=== PATIENT | male | born 1950 | race Caucasian/White ===

== ENCOUNTER 2023-06-27 13:25 | Inpatient (IN) | payer MEDICARE, OTHER ==
--- NOTE | 2023-06-27 13:41 | ED ---
General Adult HPI - General Chief complaint: Shortness of Breath Stated complaint: COPD Time Seen by Provider: 06/27/23 13:31 Source: patient, EMS, RN notes reviewed, old records reviewed (Records reviewed from [facility]) Mode of arrival: EMS Limitations: no limitations - History of Present Illness Initial comments: Patient is a pleasant 73-year-old male presenting to the emergency department with soreness of breath. Onset of symptoms was just a day ago. Patient does have cough. Patient did cough some blood this morning. Patient states dyspnea has improved with treatment from [facility]. Patient was transferred. Patient states he did have some mild leg swelling however that has essentially resolved. No calf pain. No fevers. Patient does have history of COPD with similar dyspnea. - Related Data Allergies Allergy/AdvReac Type Severity Reaction Status Date / Time No Known Allergies Allergy Verified 06/27/23 13:44 Review of Systems ROS Statement: Those systems with pertinent positive or pertinent negative responses have been documented in the HPI. ROS Other: All systems not noted in ROS Statement are negative. Constitutional: Denies: fever Eyes: Denies: eye pain ENT: Denies: ear pain Respiratory: Reports: as per HPI, cough, dyspnea, hemoptysis Cardiovascular: Reports: edema. Denies: chest pain Endocrine: Denies: fatigue Gastrointestinal: Denies: abdominal pain Genitourinary: Denies: dysuria Musculoskeletal: Denies: back pain Skin: Denies: rash Neurological: Denies: weakness General Exam Limitations: no limitations General appearance: alert, in no apparent distress Eye exam: Present: normal appearance Neck exam: Present: normal inspection Respiratory exam: Present: rhonchi Cardiovascular Exam: Present: regular rate, normal rhythm GI/Abdominal exam: Present: soft. Absent: tenderness Extremities exam: Present: normal inspection. Absent: pedal edema, calf tenderness Neurological exam: Present: alert Psychiatric exam: Present: normal affect, normal mood Skin exam: Present: normal color Course Vital Signs 06/27/23 06/27/23 13:27 13:33 Temperature 99.6 F 99.6 F Pulse Rate 91 93 Respiratory 24 24 Rate Blood Pressure 126/64 125/69 O2 Sat by Pulse 95 95 Oximetry - Reevaluation(s) Reevaluation #1: 06/27/23 13:41 There is concern for sepsis and pneumonia diagnosed at 1342. Patient did receive antibiotics at transferring facility prior to arrival. Therefore blood cultures not ordered Medical Decision Making - Medical Decision Making Was pt. sent in by a medical professional or institution (SHAYLA Guidry, PLANT PROPAGATOR, urgent care, hospital, or long term...) When possible be specific @ -Patient was sent from [facility] Did you speak to anyone other than the patient for history (EMS, parent, family, police, friend...)? What history was obtained from this source @ -Did speak with transferring physician Did you review nursing and triage notes (agree or disagree)? Why? @ -[I reviewed and agree with nursing and triage notes] Were old charts reviewed (outside hosp., previous admission, EMS record, old EKG, old radiological studies, urgent care reports/EKG's, long term records)? Report findings @ -I did review chart from [facility] Differential Diagnosis (chest pain, altered mental status, abdominal pain women, abdominal pain men, vaginal bleeding, weakness, fever, dyspnea, syncope, headache, dizziness, GI bleed, back pain, seizure, CVA, palpatations, mental health, musculoskeletal)? @ -Differential Dyspnea: Coronary syndrome, arrhythmia, tamponade, asthma, COPD, pulmonary embolism, pneumonia, pneumothorax, pulmonary effusion, anaphylaxis, diabetic ketoacidosis, flailed chest, pulmonary contusion, diaphragmatic rupture, anemia, neuro muscular, this is not meant to be an all-inclusive list. EKG interpreted by me (3pts min.). @ -[As above] X-rays interpreted by me (1pt min.). @ -Report reviewed CT interpreted by me (1pt min.). @ -Report reviewed U/S interpreted by me (1pt. min.). @ -[None done] What testing was considered but not performed or refused? (CT, X-rays, U/S, labs)? Why? @ -[None] What meds were considered but not given or refused? Why? @ -[None] Did you discuss the management of the patient with other professionals (professionals i.e. SHAYLA Guidry, PLANT PROPAGATOR, lab, RT, psych nurse, social media designer, pharmacy manager, teacher, complaint investigations officer, shoe parts caser)? Give summary @ -Case discussed with sound physician, Dr. stokes, who will admit covering hospital call. Was smoking cessation discussed for >3mins.? @ -[No] Was critical care preformed (if so, how long)? @ -[No] Were there social determinants of health that impacted care today? How? (Homelessness, low income, unemployed, alcoholism, drug addiction, transportation, low edu. Level, literacy, decrease access to med. care, halfway, rehab)? @ -[No] Was there de-escalation of care discussed even if they declined (Discuss DNR or withdrawal of care, Hospice)? DNR status @ -[No] What co-morbidities impacted this encounter? (DM, HTN, Smoking, COPD, CAD, Cancer, CVA, ARF, Chemo, Hep., AIDS, mental health diagnosis, sleep apnea, morbid obesity)? @ -[None] Was patient admitted / discharged? Hospital course, mention meds given and route, prescriptions, significant lab abnormalities, going to OR and other pertinent info. @ -Patient will be admitted for COPD and pneumonia. Patient was arty started on antibiotics. Ulnar will be placed on consult. Admission orders written. Undiagnosed new problem with uncertain prognosis? @ -[No] Drug Therapy requiring intensive monitoring for toxicity (Heparin, Nitro, Insulin, Cardizem)? @ -[No] Were any procedures done? @ -[No] Diagnosis/symptom? @ -Acute COPD, pneumonia Acute, or Chronic, or Acute on Chronic? @ -Acute on chronic, acute Uncomplicated (without systemic symptoms) or Complicated (systemic symptoms)? @ -[default] Side effects of treatment? @ -[No] Exacerbation, Progression, or Severe Exacerbation? @ -Exacerbation of COPD Poses a threat to life or bodily function? How? (Chest pain, USA, ME, pneumonia, PE, COPD, DKA, ARF, appy, cholecystitis, CVA, Diverticulitis, Homicidal, Suicidal, threat to staff... and all critical care pts) @ -Potential threat to life with sepsis and hypoxia Disposition Clinical Impression: Acute exacerbation of chronic obstructive pulmonary disease, Pneumonia, Sepsis Disposition: ADMITTED IP TO THIS [facility] Condition: Serious Is patient prescribed a controlled substance at d/c from ED?: No Referrals: Meek Chase NPC [Primary Care Provider] - 1-2 days Time of Disposition: 13:45
[2023-06-27] MEDS ORDERED: IPRATROPIUM-ALBUTEROL 3 ML NEB INHALATION PRN (13:45)
[2023-06-27] MEDS ORDERED: PNEUMONIA PROTOCOL UTILIZED 1 EACH MISC PO PRN (13:45)
--- NOTE | 2023-06-27 14:47 | XR ---
EXAMINATION TYPE: XR chest 1V portable DATE OF EXAM: 06/27/2023 2:43 PM COMPARISON: CTA chest 06/27/2023 TECHNIQUE: XR chest 1V portable Portable AP radiograph of the chest. CLINICAL INDICATION:Male, 73 years old with history of sob/pneumonia; FINDINGS: Lungs/Pleura: No pleural effusion or pneumothorax. Patchy airspace opacities within the right mid and upper lung. Pulmonary vascularity: Unremarkable. Heart/mediastinum: Cardiomediastinal silhouette is unremarkable. Musculoskeletal: No acute osseous pathology. IMPRESSION: Patchy airspace opacities within the right mid and upper lung consistent with pneumonia.
[2023-06-27] MEDS: IPRATROPIUM-ALBUTEROL 3 ML NEB INHALATION SCH ×2 (14:59→20:14)
--- NOTE | 2023-06-27 15:11 | P.CNPUL ---
History of Present Illness Consult date: 06/27/23 Requesting physician: Jose David Emerson Chief complaint: Hemoptysis and shortness of breath History of present illness: This is a 73-year-old white male, no previous significant medical history, smoker, patient presented to [facility] today with 1 day history of coughing up blood. Patient also complaining of shortness of breath, no chest pain, denies any fever or chills, denies any nausea vomiting abdominal pain angie zbigniew or hematemesis. CT angiogram of the chest showed extensive airspace disease involving the right midlung. Patient was transferred to [facility], and this consult was initiated. Chest x-ray done upon ER evaluation showed significant patchy airspace opacities within the right midlung and right upper lobe consistent with pneumonia. Patient was admitted and this consult was initiated. I saw the patient the ER, he received already vancomycin and Zosyn at [facility], and I will continue with Zosyn for now. Will initiate some diagnostic workup including sputum cultures, blood cultures, urine Legionella antigen, and based on the cultures further recommendations will follow regarding his antibiotics. Patient states that he was a week ago at [facility] with multiple constitutional symptoms and he was diagnosed with B12 deficiency but supposedly he did not have any pulmonary findings or symptoms at the time. Review of Systems Constitutional: Recent episode of generalized weakness and fatigue with aches and pains, resolved. HEENT: Negative no epistaxis. Pulmonary: As noted in HPI mostly cough, hemoptysis, and shortness of breath. Cardiac: Negative GI: Negative Genitourinary: Negative Musculoskeletal recent episode of aches and pains resolved Psychiatric: Negative Hematologic: Hemoptysis Neurologic: Negative Endocrine: Negative Skin: Negative Medications and Allergies Home Medications Medication Instructions Recorded Confirmed Type Atorvastatin [Lipitor] 40 mg PO HS 06/27/23 06/27/23 History Budesonide [Pulmicort] 0.5 mg INHALATION RT-BID 06/27/23 06/27/23 History Cyanocobalamin [Vitamin B-12] 1,000 mcg PO DAILY 06/27/23 06/27/23 History Furosemide [Lasix] 20 mg PO DAILY 06/27/23 06/27/23 History Ipratropium-Albuterol Nebulize 3 ml INHALATION RT-QID PRN 06/27/23 06/27/23 History [Duoneb 0.5 mg-3 mg/3 ml Soln] Levothyroxine Sodium [Synthroid] 112 mcg PO DAILY 06/27/23 06/27/23 History Melatonin 10 mg PO HS 06/27/23 06/27/23 History Metoprolol Tartrate [Lopressor] 25 mg PO DAILY 06/27/23 06/27/23 History Montelukast [Singulair] 10 mg PO HS 06/27/23 06/27/23 History Pantoprazole [Protonix] 40 mg PO BID 06/27/23 06/27/23 History Potassium Chloride ER [K-Dur 20] 20 meq PO DAILY 06/27/23 06/27/23 History Sertraline [Zoloft] 50 mg PO DAILY 06/27/23 06/27/23 History predniSONE [Deltasone] See Taper PO DIRECTED 06/27/23 06/27/23 History traZODone HCL [Desyrel] 50 mg PO HS 06/27/23 06/27/23 History Allergies Allergy/AdvReac Type Severity Reaction Status Date / Time No Known Allergies Allergy Verified 06/27/23 14:09 Physical Exam Vitals: Vital Signs Temp Pulse Resp BP Pulse Ox 06/27/23 13:33 99.6 F 93 24 125/69 95 06/27/23 13:27 99.6 F 91 24 126/64 95 Intake and Output 06/27/23 06/27/23 06/27/23 06:59 14:59 22:59 Other: Weight 113.4 kg Physical Exam: Revealed a 73-year-old white male in no distress on few liters nasal cannula Head: Atraumatic, normocephalic HEENT:[Neck is supple.] [No neck masses.] [No thyromegaly.] [No JVD.] Chest: [Crackles at the right base. And the right midlung area nor rhonchi no wheezes Cardiac Exam: [Normal S1 and S2, no S3 gallop, no murmur.] Abdomen: [Soft, nontender, no megaly, no rebound, no guarding, normal bowel sounds.] Extremities: [No clubbing, no edema, no cyanosis.] Neurological Exam: [No focal neurologic deficit.] Alert oriented 3 Psychiatric: Normal mood affect and normal mental status examination. Skin: No rashes Results - Laboratory Findings Abnormal lab findings: Abnormal Labs 06/27/23 13:45 Plasma Lactic Acid Obdulio 2.6 H* - Diagnostic Findings Chest x-ray: image reviewed (Findings are consistent with extensive pneumonia involving the right midlung area and right upper lobe) Additional studies: Report on his recent CT angiogram of the chest from [facility] showed mostly pneumonia, no evidence of pulmonary embolism. Assessment and Plan Assessment: Impression: Acute hypoxic respiratory failure secondary to extensive pneumonia Acute healthcare acquired pneumonia, patient was recently in [facility]/last week. Hemoptysis secondary to pneumonia however if symptoms persist may consider bronchoscopy in the next 24 hours, we'll recommend keeping the patient nothing by mouth after midnight. History of underlying COPD, presently inactive Dyslipidemia History of B12 deficiency Recommendation: Admit patient to regular medical floor Continue antibiotics, presently on Zithromax and Zosyn Check blood cultures and sputum cultures Continue bronchodilators Continues methylprednisolone Will likely consider bronchoscopy in a.m. We will continue to follow Time with Patient: Greater than 30
[2023-06-27] MEDS: PIPERACILLIN-TAZOBACTAM 3.375 GM in SODIUM CHLORIDE 0.9% 100 ML IVPB SCH (15:54)
--- NOTE | 2023-06-27 16:23 | P.HPIM ---
History of Present Illness H&P Date: 06/27/23 Patient is a 73-year-old male with history of COPD, hypertension, dyslipidemia, presenting from outside hospital with COPD exacerbation, pneumonia and sepsis, and hemoptysis. Patient was recently admitted at outside hospital 3 weeks ago with lower extremity numbness, and anemia. He was found to have severe B12 deficiency. He was in the hospital for 1 week. He has been home for a week and half. Last night he developed severe hemoptysis and cough. Denies any significant fevers or chills. Denies any chest pain, abdominal pain, nausea, vomiting, urinary or bowel complaints. He presented to the outside hospital, he was having urinary retention, Lang was placed. In the ED, temperature was 99.6, blood pressure 126/64, saturating at 95% on 4 L, pulse 91, respiratory rate 20. Labs at Outside facility showed WBC count of 25.93, hemoglobin 12.1, macrocytic, creatinine 1, proBNP 975, pro calcitonin elevated, negative troponin, CTA chest showed no PE, severe LAD calcification, COPD with moderate emphysema, evidence of pneumonia greater on the right compared to left. Patient repeated for sepsis secondary to pneumonia and hemoptysis, and hypoxic respiratory failure, pulmonology consulted. Pertinent positives and negatives as discussed in HPI, a complete review of s ystems was performed and all other systems are negative. Patient seen and examined at bedside. Vital signs reviewed General: nontoxic, no distress, appears at stated age Derm: warm, dry Head: atraumatic, normocephalic, symmetric Eyes: EOMI, no lid lag, anicteric sclera, pupils equal round reactive to light ENT: Nose and ears atraumatic Neck: No thyromegaly, supple Mouth: no lip lesion, mucus membranes moist Cardiovascular: S1S2 reg, no murmur, 2+ pitting edema Lungs: Bilateral rhonchi are, no wheeze, no accessory muscle use Abdominal: soft, nontender to palpation, obese abdomen, no guarding, no appreciable organomegaly Ext: no gross muscle atrophy, muscle strength muscle strength 5 out of 5 in all 4 extremities, no contractures Neuro: CN II-XII grossly intact Psych: Alert, oriented, appropriate affect Assessment/Plan: Active: Acute hypoxic respiratory failure Sepsis secondary to pneumonia possibly healthcare acquired COPD exacerbation Hemoptysis Hypertension Acute urinary retention -Patient started on azithromycin and Zosyn -Also on Solu-Medrol 60 mg IV every 6 hours -Continue bronchodilators -Pulmonology consulted, reviewed, likely bronchoscopy in the morning -Sputum cultures, Legionella urine antigen -Pro calcitonin elevated -Blood cultures ordered -CBC and BMP tomorrow -Continue Lang catheter Chronic: Dyslipidemia Hypothyroidism The patient is admitted with an anticipated greater than 2 midnight stay as inpatient status for evaluation of sepsis secondary to community-acquired pneumonia. Surrogate decision-maker: Daughter CODE STATUS: Full code DVT prophylaxis: SCDs Anticipated discharge date: 2+ days Anticipated discharge place: Pending clinical course A total of 65 minutes was spent on the care of this complex patient more than 50% of the time was spent in counseling and care coordination. Medications and Allergies Home Medications Medication Instructions Recorded Confirmed Type Atorvastatin [Lipitor] 40 mg PO HS 06/27/23 06/27/23 History Budesonide [Pulmicort] 0.5 mg INHALATION RT-BID 06/27/23 06/27/23 History Cyanocobalamin [Vitamin B-12] 1,000 mcg PO DAILY 06/27/23 06/27/23 History Furosemide [Lasix] 20 mg PO DAILY 06/27/23 06/27/23 History Ipratropium-Albuterol Nebulize 3 ml INHALATION RT-QID PRN 06/27/23 06/27/23 History [Duoneb 0.5 mg-3 mg/3 ml Soln] Levothyroxine Sodium [Synthroid] 112 mcg PO DAILY 06/27/23 06/27/23 History Melatonin 10 mg PO HS 06/27/23 06/27/23 History Metoprolol Tartrate [Lopressor] 25 mg PO DAILY 06/27/23 06/27/23 History Montelukast [Singulair] 10 mg PO HS 06/27/23 06/27/23 History Pantoprazole [Protonix] 40 mg PO BID 06/27/23 06/27/23 History Potassium Chloride ER [K-Dur 20] 20 meq PO DAILY 06/27/23 06/27/23 History Sertraline [Zoloft] 50 mg PO DAILY 06/27/23 06/27/23 History predniSONE [Deltasone] See Taper PO DIRECTED 06/27/23 06/27/23 History traZODone HCL [Desyrel] 50 mg PO HS 06/27/23 06/27/23 History Allergies Allergy/AdvReac Type Severity Reaction Status Date / Time No Known Allergies Allergy Verified 06/27/23 14:09 Physical Exam Vitals: Vital Signs Temp Pulse Resp BP Pulse Ox 06/27/23 15:08 84 06/27/23 15:03 94 L 06/27/23 14:59 84 06/27/23 13:33 99.6 F 93 24 125/69 95 06/27/23 13:27 99.6 F 91 24 126/64 95 Intake and Output 06/27/23 06/27/23 06/27/23 06:59 14:59 22:59 Other: Weight 113.4 kg Results Labs: Abnormal Lab Results - Last 24 Hours (Table) 06/27/23 Range/Units 13:45 Plasma Lactic Acid Obdulio 2.6 H* (0.7-2.0) mmol/L
[2023-06-27] MEDS: PANTOPRAZOLE 40 MG TABLET PO SCH (17:11)
[2023-06-27] MEDS: methylPREDNISolone SOD SUCCI 125 MG/2 ML VIAL IV SCH (17:11)
[2023-06-27] MEDS: SODIUM CHLORIDE 0.9% 1,000 ML IV SCH (17:12)
[2023-06-27] MEDS: BUDESONIDE 0.5 MG/2 ML NEBU INHALATION SCH (20:14)
[2023-06-27] MEDS: ATORVASTATIN 40 MG TAB PO SCH (22:16)
[2023-06-27] MEDS: MELATONIN 5 MG TABLET PO SCH (22:16)
[2023-06-27] MEDS: traZODone HCL 50 MG TAB PO SCH (22:17)
[2023-06-27] MEDS: MONTELUKAST 10 MG TAB PO SCH (22:17)
[2023-06-28] MEDS: methylPREDNISolone SOD SUCCI 125 MG/2 ML VIAL IV SCH ×4 (00:32→17:04)
[2023-06-28] MEDS: PIPERACILLIN-TAZOBACTAM 3.375 GM in SODIUM CHLORIDE 0.9% 100 ML IVPB SCH ×3 (00:33→15:52)
[2023-06-28] MEDS: SODIUM CHLORIDE 0.9% 1,000 ML IV SCH ×3 (00:37→17:24)
[2023-06-28] MEDS: PANTOPRAZOLE 40 MG TABLET PO SCH ×2 (05:28→17:04)
[2023-06-28] MEDS: LEVOTHYROXINE 112 MCG TAB PO SCH ×2 (05:28→09:42)
--- NOTE | 2023-06-28 07:38 | XR ---
EXAMINATION TYPE: XR chest 2V DATE OF EXAM: 06/28/2023 COMPARISON: 06/27/2023 HISTORY: Shortness of breath TECHNIQUE: Frontal and lateral views of the chest are obtained. FINDINGS: Scattered senescent parenchymal changes noted. Hyperinflation compatible with COPD. Patchy infiltrate right upper lobe persists and may be slightly improved. The left lung remains clear . Heart size is stable. Mediastinal structures are stable and grossly unremarkable. No evidence for hilar prominence. Degenerative changes dorsal spine. IMPRESSION: 1. Persistent and possibly slightly improved right upper lobe pneumonia.
[2023-06-28] MEDS: BUDESONIDE 0.5 MG/2 ML NEBU INHALATION SCH ×2 (07:49→20:00)
[2023-06-28] MEDS: IPRATROPIUM-ALBUTEROL 3 ML NEB INHALATION SCH ×4 (07:49→20:00)
[2023-06-28] MEDS ORDERED: FUROSEMIDE 20 MG TAB PO SCH (09:00)
[2023-06-28] MEDS ORDERED: METOPROLOL TARTRATE 25 MG TAB PO SCH (09:00)
[2023-06-28] MEDS ORDERED: GLYCOPYRROLATE 0.2 MG/ML 2 ML VIAL ONE (09:04)
[2023-06-28] MEDS ORDERED: KETAMINE 10 MG/ML 20 ML VIAL ONE (09:04)
[2023-06-28] MEDS ORDERED: LIDOCAINE 2% INJ 20 MG/ML (2 ML VIAL) ONE (09:04)
[2023-06-28] MEDS ORDERED: PROPOFOL 10 MG/ML 20 ML VIAL IV ONE (09:04)
[2023-06-28] MEDS ORDERED: MIDAZOLAM 2 MG/2 ML VIAL ONE (09:04)
[2023-06-28] MEDS ORDERED: LIDOCAINE 2% INJ 20 MG/ML INTRATRACH ONE (09:11)
[2023-06-28] MEDS ORDERED: IV FLUID CONTINUATION 1,000 ML IV ONE (09:18)
[2023-06-28] MEDS: CYANOCOBALAMIN 500 MCG TAB PO SCH (09:42)
[2023-06-28] MEDS: SERTRALINE 50 MG TAB PO SCH (09:42)
[2023-06-28] MEDS: POTASSIUM CHLORIDE ER 20 MEQ TAB.ER PO SCH (09:42)
[2023-06-28] MEDS: AZITHROMYCIN 500 MG in SODIUM CHLORIDE 0.9% 250 ML IVPB SCH (09:43)
--- NOTE | 2023-06-28 10:16 | OP ---
OPERATIVE REPORT DATE OF SERVICE : PROCEDURES PERFORMED: Bronchoscopy and bronchoalveolar lavage of the superior segment of the right lower lobe. PREOPERATIVE DIAGNOSES: Hemoptysis and pneumonia. POSTOPERATIVE DIAGNOSES: Hemoptysis and pneumonia. ANESTHESIA USED: IV conscious sedation. DESCRIPTION OF PROCEDURE: The patient was brought into the bronchoscopy suite, placed in a supine position, O2 was applied via Ventimask. The patient had his O2 saturation continuously monitored via pulse oximetry, cardiac rhythm was continuously monitored, blood pressure was intermittently monitored. After adequate IV conscious sedation, the bronchoscope was inserted through a bite block to the area of the upper airways. No evidence of any pathology noted on the vocal cords. Lidocaine was applied over the vocal cords and the bronchoscope was advanced further down. Thorough examination was done of the right upper lobe, right middle lobe, right lower lobe, left lower lobe, lingula, and left upper lobe. There was evidence of purulent secretions mixed with a tiny bit of blood in the superior segment of the right lower lobe. Hence, the superior segment of the right lower lobe was lavaged with saline, fluid was obtained and sent for different diagnostic studies. There was no evidence of any endobronchial tumors. The procedure was well tolerated, no complications. We will continue treatment for presumptive pneumonia/antibiotics. MMODL / IJN: [id number] /
[2023-06-28] MEDS: TAMSULOSIN 0.4 MG CAP.ER.24H PO SCH (10:45)
--- NOTE | 2023-06-28 10:54 | P.PN ---
Subjective Progress Note Date: 06/28/23 This is a 73-year-old white male, no previous significant medical history, smoker, patient presented to [facility] today with 1 day history of coughing up blood. Patient also complaining of shortness of breath, no chest pain, denies any fever or chills, denies any nausea vomiting abdominal pain me dominic or hematemesis. CT angiogram of the chest showed extensive airspace disease involving the right midlung. Patient was transferred to [facility], and this consult was initiated. Chest x-ray done upon ER evaluation showed significant patchy airspace opacities within the right midlung and right upper lobe consistent with pneumonia. Patient was admitted and this consult was initiated. I saw the patient the ER, he received already vancomycin and Zosyn at [facility], and I will continue with Zosyn for now. Will initiate some diagnostic workup including sputum cultures, blood cultures, urine Legionella antigen, and based on the cultures further recommendations will follow regarding his antibiotics. Patient states that he was a week ago at [facility] with multiple constitutional symptoms and he was diagnosed with B12 deficiency but supposedly he did not have any pulmonary findings or symptoms at the time. The patient is seen today 06/28/2023 in follow-up on the regular medical floor. He is currently resting comfortably in bed. Awake and alert in no acute distress. No further hemoptysis this morning. He has a loose nonproductive cough. Chest x-ray showing persistent and slightly improved right upper lobe pneumonia. COVID-19 screen was negative. Plan is for bronchoscopy with BAL today. Currently on oxygen at 4 L/m per nasal cannula. Remains on DuoNeb inhalations, Pulmicort inhalations, Singulair, Solu-Medrol. Antibiotics in the form of Zosyn. Objective - Vital Signs Vital signs: Vital Signs Temp 98.3 F 06/28/23 07:50 Pulse 99 06/28/23 10:31 Resp 18 06/28/23 10:31 BP 124/74 06/28/23 10:31 Pulse Ox 93 L 06/28/23 10:31 FiO2 Intake & Output 06/27/23 06/28/23 06/28/23 18:59 06:59 18:59 Intake Total 100 Output Total 1400 430 Balance -1400 -430 100 Weight 113.4 kg Intake: IV 100 Output: Urine 1400 430 Other: Voiding Method Indwelling Catheter Indwelling Catheter Indwelling Catheter # Voids 0 - Exam GENERAL EXAM: Alert, pleasant 73-year-old male, on 4 L nasal cannula, comfortable in no apparent distress. HEAD: Normocephalic. EYES: Normal reaction of pupils, equal size. NOSE: Clear with pink turbinates. THROAT: No erythema or exudates. NECK: No masses, no JVD. CHEST: No chest wall deformity. LUNGS: Equal air entry with few scattered rhonchi of the right lung. CVS: S1 and S2 normal with no audible murmur, regular rhythm. ABDOMEN: No hepatosplenomegaly, normal bowel sounds, no guarding or rigidity. SPINE: No scoliosis or deformity SKIN: No rashes CENTRAL NERVOUS SYSTEM: No focal deficits, tone is normal in all 4 extremities. EXTREMITIES: There is no peripheral edema. No clubbing, no cyanosis. Peripheral pulses are intact. - Labs Labs: Abnormal Lab Results - Last 24 Hours (Table) 06/27/23 06/27/23 Range/Units 13:45 18:12 Plasma Lactic Acid Obdulio 2.6 H* 4.2 H* (0.7-2.0) mmol/L Assessment and Plan Assessment: Acute hypoxic respiratory failure secondary to extensive pneumonia Acute healthcare acquired pneumonia, patient was recently in [facility]/last week. Hemoptysis secondary to pneumonia, bronchoscopy today ruled out endobronchial tumor. History of underlying COPD, presently inactive Dyslipidemia History of B12 deficiency Plan: The patient was seen and evaluated Chest x-ray, labs and medications reviewed Bronchoscopy with BAL performed today No endobronchial lesions noted Remains on antibiotics, bronchodilators, steroids Check a procalcitonin Titrate the FiO2 as tolerated We will continue to follow I have personally seen and examined the patient, performed the documentation and the assessment and plan as written. Number of minutes spent on the visit: 10.
[2023-06-28 13:24] LABS: ALT 23 U/L (10-49); AST 11 U/L (14-35); Albumin 3.8 d/dL (3.8-4.9); Albumin/Globulin Ratio 2.53 Ratio (1.60-3.17); Alkaline Phosphatase 54 U/L (41-126); BUN/Creat Ratio 17.85 Ratio (12.00-20.00); Blood Urea Nitrogen 23.2 mg/dL (9.0-27.0); Calcium 8.8 mg/dL (8.7-10.3); Carbon Dioxide 24.3 mmol/L (21.6-31.8); Chloride 107 mmol/L (96-109); Globulin 1.5 d/dL (1.6-3.3); Glucose 151 mg/dL (70-110); Potassium 4.3 mmol/L (3.5-5.5); Sodium 144 mmol/L (135-145); Total Bilirubin 1.3 mg/dL (0.3-1.2); Total Protein 5.3 d/dL (6.2-8.2)
[2023-06-28 13:35] LABS: Basophils # (A) 0.01 X 10*3/uL (0.00-0.10); Basophils % (A) 0.1 %; Eosinophils # (A) 0 X 10*3/uL (0.04-0.35); Eosinophils % (A) 0 %; HCT 34.3 % (39.6-50.0); HGB 10.9 d/dL (13.0-17.0); Lymphocytes # (A) 0.33 X 10*3/uL (0.90-5.00); Lymphocytes % (A) 1.9 %; MCH 35.9 pg (27.0-32.0); MCHC 31.8 d/dL (32.0-37.0); MCV 112.8 FL (80.0-97.0); Mean Platelet Volume 10.4 FL (9.5-12.2); Monocytes # (A) 0.25 X 10*3/uL (0.20-1.00); Monocytes % (A) 1.5 %; NRBC Per 100 WBC 0 X 10*3/uL (0.00-0.01); Neutrophils # (A) 16.36 X 10*3/uL (1.80-7.70); Neutrophils % (A) 95.8 %; Platelet Count 394 X 10*3/uL (140-440); RBC 3.04 X 10*6/uL (4.40-5.60); RDW 17.6 % (11.5-14.5); WBC 17.07 X 10*3/uL (4.50-10.00)
[2023-06-28] MEDS: traZODone HCL 50 MG TAB PO SCH (20:41)
[2023-06-28] MEDS: MELATONIN 5 MG TABLET PO SCH (20:41)
[2023-06-28] MEDS: MONTELUKAST 10 MG TAB PO SCH (20:41)
[2023-06-28] MEDS: ATORVASTATIN 40 MG TAB PO SCH (20:41)
--- NOTE | 2023-06-28 22:26 | P.PN ---
Progress Note - Text Progress Note Date: 06/28/23 Patient is a 73-year-old male with history of COPD, hypertension, dyslipidemia, presenting from outside hospital with COPD exacerbation, pneumonia and sepsis, and hemoptysis. Patient was recently admitted at outside hospital 3 weeks ago with lower extremity numbness, and anemia. He was found to have severe B12 deficiency. He was in the hospital for 1 week. He has been home for a week and half. Last night he developed severe hemoptysis and cough. Denies any significant fevers or chills. Denies any chest pain, abdominal pain, nausea, vomiting, urinary or bowel complaints. He presented to the outside hospital, he was having urinary retention, Lang was placed. In the ED, temperature was 99.6, blood pressure 126/64, saturating at 95% on 4 L, pulse 91, respiratory rate 20. Labs at Outside facility showed WBC count of 25.93, hemoglobin 12.1, macrocytic, creatinine 1, proBNP 975, pro calcitonin elevated, negative troponin, CTA chest showed no PE, severe LAD calcification, COPD with moderate emphysema, evidence of pneumonia greater on the right compared to left. Patient repeated for sepsis secondary to pneumonia and hemoptysis, and hypoxic respiratory failure, pulmonology consulted. 06/28/2023: Patient follows with Dr. Ambrosio. I took over the care today. Declining a bit. Some shortness of breath. Slight cough. Some shortness of breath. No sputum. Appetite fair. We'll try to DC the Lang catheter. On IV Zosyn for pneumonia. Underwent bronchoscopy by Dr. Ramos earlier today. Found to have purulent material. Active Medications Albuterol/Ipratropium (Ipratropium-Albuterol 3 Ml Neb) 3 ml INHALATION RT-QID ON LICENSE OF [facility] Last Admin: 06/28/23 20:00 Dose: 3 ml Albuterol/Ipratropium (Ipratropium-Albuterol 3 Ml Neb) 3 ml INHALATION RT-Q4H PRN PRN Reason: shortness of breath Atorvastatin Calcium (Atorvastatin 40 Mg Tab) 40 mg PO HS ON LICENSE OF [facility] Last Admin: 06/28/23 20:41 Dose: 40 mg Budesonide (Budesonide 0.5 Mg/2 Ml Nebu) 0.5 mg INHALATION RT-BID ON LICENSE OF [facility] Last Admin: 06/28/23 20:00 Dose: 0.5 mg Cyanocobalamin (Cyanocobalamin 500 Mcg Tab) 1,000 mcg PO DAILY ON LICENSE OF [facility] Last Admin: 06/28/23 09:42 Dose: 1,000 mcg Azithromycin 500 mg/ Sodium (Chloride) 250 mls @ 250 mls/hr IVPB DAILY ON LICENSE OF [facility]; Protocol Stop: 06/29/23 09:59 Last Admin: 06/28/23 09:43 Dose: 250 mls/hr Piperacillin Sod/Tazobactam (Sod 3.375 gm/ Sodium Chloride) 100 mls @ 25 mls/hr IVPB Q8HR ON LICENSE OF [facility]; Protocol Stop: 07/02/23 16:01 Last Admin: 06/28/23 15:52 Dose: 25 mls/hr Sodium Chloride (Saline 0.9%) 1,000 mls @ 130 mls/hr IV .Q7H42M ON LICENSE OF [facility] Last Admin: 06/28/23 17:24 Dose: Not Given Levothyroxine Sodium (Levothyroxine 112 Mcg Tab) 112 mcg PO DAILY@0630 ON LICENSE OF [facility] Last Admin: 06/28/23 09:42 Dose: 112 mcg Melatonin (Melatonin 5 Mg Tablet) 10 mg PO [facility] Last Admin: 06/28/23 20:41 Dose: 10 mg Methylprednisolone Sodium Succinate (Methylprednisolone Sod Succi 125 Mg/2 Ml Vial) 60 mg IV Q6HR ON LICENSE OF [facility] Last Admin: 06/28/23 17:04 Dose: 60 mg Metoprolol Tartrate (Metoprolol Tartrate 25 Mg Tab) 25 mg PO DAILY ON LICENSE OF [facility] Last Admin: 06/28/23 09:42 Dose: 25 mg Miscellaneous Information (Pneumonia Protocol Utilized 1 Each Misc) 1 each PO ONCE PRN PRN Reason: Per Protocol Montelukast Sodium (Montelukast 10 Mg Tab) 10 mg PO [facility] Last Admin: 06/28/23 20:41 Dose: 10 mg Pantoprazole Sodium (Pantoprazole 40 Mg Tablet) 40 mg PO AC-BID ON LICENSE OF [facility] Last Admin: 06/28/23 17:04 Dose: 40 mg Potassium Chloride (Potassium Chloride Er 20 Meq Tab.Er) 20 meq PO DAILY ON LICENSE OF [facility] Last Admin: 06/28/23 09:42 Dose: 20 meq Sertraline HCl (Sertraline 50 Mg Tab) 50 mg PO DAILY ON LICENSE OF [facility] Last Admin: 06/28/23 09:42 Dose: 50 mg Tamsulosin HCl (Tamsulosin 0.4 Mg Cap.Er.24h) 0.4 mg PO PC-BRKFST ON LICENSE OF [facility] Last Admin: 06/28/23 10:45 Dose: 0.4 mg Trazodone HCl (Trazodone Hcl 50 Mg Tab) 50 mg PO HS ON LICENSE OF [facility] Last Admin: 06/28/23 20:41 Dose: 50 mg On examination: VITAL SIGNS: [88.7, 72, 20, 11 8 x 68, 95% on 4 L] GENERAL APPEARANCE: Reclining in bed awake slightly tired HEENT: Normal external appearance of nose and ear. Oral cavity normal EYES: Pupils equal. Conjunctiva normal. NECK: JVD not raised. Mass not palpable. RESPIRATORY: Respiratory effort increased. Right lung post recent coarse crackles CARDIOVASCULAR: First and second sounds normal. No edema. ABDOMEN: Soft. Liver and spleen not palpable. No tenderness. No mass palpable. PSYCHIATRY: Alert and oriented x3. Mood and affect normal. INVESTIGATIONS, reviewed in the clinical context: June 28: White count 17 hemoglobin 10.9 platelets 394 sodium 144 potassium 4.3 BUN 23.2 creatinine 1.3 procalcitonin 0.84 COVID 19 P/Cr: Not detected Chest x-ray film personally reviewed by me-right upper lobe infiltrate. Assessment and plan: -Right upper lobe pneumonia. Suspect gram-negative organism. slow to respond IV Zosyn. Unit pending cultures from bronchoscopy lavage -Acute hypoxic respiratory failure secondary to pneumonia: Slow to respond Current in 4 L of oxygen -Sepsis secondary to pneumonia -Acute COPD exacerbation DuoNeb. IV Solu-Medrol. -Hemoptysis likely secondary to pneumonia. -Essential hypertension -Hypothyroid Synthroid 112 g -Vitamin B-12 deficiency Vitamin B12 supplement -Bilateral hearing loss -Chronic insomnia Trazodone -Hyperlipidemia Lipitor -Depression Zoloft -GERD Protonix -Full code
[2023-06-29] MEDS: PIPERACILLIN-TAZOBACTAM 3.375 GM in SODIUM CHLORIDE 0.9% 100 ML IVPB SCH ×2 (00:13→07:47)
[2023-06-29] MEDS: methylPREDNISolone SOD SUCCI 125 MG/2 ML VIAL IV SCH ×2 (00:14→05:37)
[2023-06-29] MEDS: LEVOTHYROXINE 112 MCG TAB PO SCH (05:37)
[2023-06-29] MEDS: PANTOPRAZOLE 40 MG TABLET PO SCH ×2 (05:37→17:05)
[2023-06-29] MEDS: SODIUM CHLORIDE 0.9% 1,000 ML IV SCH ×2 (05:38→07:47)
[2023-06-29] MEDS: TAMSULOSIN 0.4 MG CAP.ER.24H PO SCH (07:47)
--- NOTE | 2023-06-29 08:24 | XR ---
EXAMINATION TYPE: XR chest 1V portable DATE OF EXAM: 06/29/2023 HISTORY: Shortness of breath. COMPARISON: 06/28/2023 TECHNIQUE: Single view of the chest is submitted. FINDINGS: Demonstrated are scattered senescent parenchymal change. Right perihilar infiltrate persists although appears to be slightly improved. Correlate clinically an d progress studies are recommended. The heart is stable. Hilar and mediastinal structures are within normal limits. Degenerative changes are seen of the dorsal spine. IMPRESSION: 1. Right perihilar infiltrate persists although appears to be slightly improved. Correlate clinicall y and progress studies are recommended.
[2023-06-29] MEDS: IPRATROPIUM-ALBUTEROL 3 ML NEB INHALATION SCH ×4 (08:45→20:41)
[2023-06-29] MEDS: BUDESONIDE 0.5 MG/2 ML NEBU INHALATION SCH ×2 (08:46→20:41)
[2023-06-29] MEDS: POTASSIUM CHLORIDE ER 20 MEQ TAB.ER PO SCH (08:52)
[2023-06-29] MEDS: METOPROLOL TARTRATE 12.5 MG TAB PO SCH ×2 (08:52→20:30)
[2023-06-29] MEDS: AZITHROMYCIN 500 MG in SODIUM CHLORIDE 0.9% 250 ML IVPB SCH (08:53)
[2023-06-29] MEDS: SERTRALINE 50 MG TAB PO SCH (08:53)
[2023-06-29] MEDS: CYANOCOBALAMIN 500 MCG TAB PO SCH (08:53)
--- NOTE | 2023-06-29 09:54 | P.PN ---
Subjective Progress Note Date: 06/29/23 This is a 73-year-old white male, no previous significant medical history, smoker, patient presented to [facility] today with 1 day history of coughing up blood. Patient also complaining of shortness of breath, no chest pain, denies any fever or chills, denies any nausea vomiting abdominal pain me dominic or hematemesis. CT angiogram of the chest showed extensive airspace disease involving the right midlung. Patient was transferred to [facility], and this consult was initiated. Chest x-ray done upon ER evaluation showed significant patchy airspace opacities within the right midlung and right upper lobe consistent with pneumonia. Patient was admitted and this consult was initiated. I saw the patient the ER, he received already vancomycin and Zosyn at [facility], and I will continue with Zosyn for now. Will initiate some diagnostic workup including sputum cultures, blood cultures, urine Legionella antigen, and based on the cultures further recommendations will follow regarding his antibiotics. Patient states that he was a week ago at [facility] with multiple constitutional symptoms and he was diagnosed with B12 deficiency but supposedly he did not have any pulmonary findings or symptoms at the time. The patient is seen today 06/28/2023 in follow-up on the regular medical floor. He is currently resting comfortably in bed. Awake and alert in no acute distress. No further hemoptysis this morning. He has a loose nonproductive cough. Chest x-ray showing persistent and slightly improved right upper lobe pneumonia. COVID-19 screen was negative. Plan is for bronchoscopy with BAL today. Currently on oxygen at 4 L/m per nasal cannula. Remains on DuoNeb inhalations, Pulmicort inhalations, Singulair, Solu-Medrol. Antibiotics in the form of Zosyn. The patient is seen today 06/29/2023 in follow-up on the regular medical floor. He is currently sitting up in bed. Awake and alert in no acute distress. No further hemoptysis. No worsening shortness of breath, cough or congestion. Chest x-ray showing improvement in the right hilar infiltrate. Blood culture revealed no growth. He is continued on DuoNeb inhalations, Pulmicort inhalat ions, IV Solu-Medrol. Antibiotics in the form of Zosyn and azithromycin. Objective - Vital Signs Vital signs: Vital Signs Temp 97.8 F 06/29/23 07:31 Pulse 84 06/29/23 09:02 Resp 17 06/29/23 07:31 BP 156/64 06/29/23 07:31 Pulse Ox 94 L 06/29/23 08:46 FiO2 Intake & Output 06/28/23 06/29/23 06/29/23 18:59 06:59 18:59 Intake Total 340 Output Total 1100 1535 Balance -760 -1535 Intake: IV 100 Oral 240 Output: Urine 1100 1535 Uretheral (Lang) 1100 Other: Voiding Method Indwelling Catheter Toilet Urinal - Exam GENERAL EXAM: Alert, pleasant 73-year-old male, sitting up in bed, on 3 L nasal cannula, comfortable in no apparent distress. HEAD: Normocephalic. EYES: Normal reaction of pupils, equal size. NOSE: Clear with pink turbinates. THROAT: No erythema or exudates. NECK: No masses, no JVD. CHEST: No chest wall deformity. LUNGS: Equal air entry with few scattered rhonchi of the right lung. CVS: S1 and S2 normal with no audible murmur, regular rhythm. ABDOMEN: No hepatosplenomegaly, normal bowel sounds, no guarding or rigidity. SPINE: No scoliosis or deformity SKIN: No rashes CENTRAL NERVOUS SYSTEM: No focal deficits, tone is normal in all 4 extremities. EXTREMITIES: There is no peripheral edema. No clubbing, no cyanosis. Peripheral pulses are intact. - Labs CBC & Chem 7: 06/28/23 06:53 06/28/23 06:53 Labs: Abnormal Lab Results - Last 24 Hours (Table) 06/28/23 06/28/23 06/28/23 Range/Units 06:53 06:53 06:53 WBC 17.07 H (4.50-10.00) X 10*3/uL RBC 3.04 L (4.40-5.60) X 10*6/uL Hgb 10.9 L (13.0-17.0) d/dL Hct 34.3 L (39.6-50.0) % MCV 112.8 H (80.0-97.0) FL MCH 35.9 H (27.0-32.0) pg MCHC 31.8 L (32.0-37.0) d/dL RDW 17.6 H (11.5-14.5) % Neutrophils # 16.36 H (1.80-7.70) X 10*3/uL Lymphocytes # 0.33 L (0.90-5.00) X 10*3/uL Eosinophils # 0 L (0.04-0.35) X 10*3/uL Anion Gap 12.70 H (4.00-12.00) mmol/L Est GFR (CKD-EPI) 58 L (>=60) Glucose 151 H (70-110) mg/dL Total Bilirubin 1.3 H (0.3-1.2) mg/dL AST 11 L (14-35) U/L Total Protein 5.3 L (6.2-8.2) d/dL Globulin 1.5 L (1.6-3.3) d/dL Procalcitonin 0.84 H (0.02-0.09) ng/mL Microbiology - Last 24 Hours (Table) 06/27/23 18:12 Blood Culture - Preliminary Blood Assessment and Plan Assessment: Acute hypoxic respiratory failure secondary to extensive pneumonia, follow-up chest x-ray showing improvement. Pro-calcitonin 0.84 Acute healthcare acquired pneumonia, patient was in [facility] last week Hemoptysis secondary to pneumonia, bronchoscopy today ruled out endobronchial tumor History of underlying COPD, presently inactive Dyslipidemia History of B12 deficiency Plan: The patient was seen and evaluated Chest x-ray, labs and medications reviewed Cleared for discharge from the pulmonary standpoint Complete 7 days of Levaquin Continue his home pulmonary medications and oxygen Follow-up in our office in 1 week I have personally seen and examined the patient, performed the documentation and the assessment and plan as written. Number of minutes spent on the visit: 10.
[2023-06-29] MEDS: methylPREDNISolone SOD SUCCI 40 MG/ML 1 ML VIAL IV SCH ×2 (14:07→21:25)
--- NOTE | 2023-06-29 16:54 | P.PN ---
Progress Note - Text Progress Note Date: 06/29/23 Patient is a 73-year-old male with history of COPD, hypertension, dyslipidemia, presenting from outside hospital with COPD exacerbation, pneumonia and sepsis, and hemoptysis. Patient was recently admitted at outside hospital 3 weeks ago with lower extremity numbness, and anemia. He was found to have severe B12 deficiency. He was in the hospital for 1 week. He has been home for a week and half. Last night he developed severe hemoptysis and cough. Denies any significant fevers or chills. Denies any chest pain, abdominal pain, nausea, vomiting, urinary or bowel complaints. He presented to the outside hospital, he was having urinary retention, Lang was placed. In the ED, temperature was 99.6, blood pressure 126/64, saturating at 95% on 4 L, pulse 91, respiratory rate 20. Labs at Outside facility showed WBC count of 25.93, hemoglobin 12.1, macrocytic, creatinine 1, proBNP 975, pro calcitonin elevated, negative troponin, CTA chest showed no PE, severe LAD calcification, COPD with moderate emphysema, evidence of pneumonia greater on the right compared to left. Patient repeated for sepsis secondary to pneumonia and hemoptysis, and hypoxic respiratory failure, pulmonology consulted. 06/28/2023: Patient follows with Dr. Ambrosio. I took over the care today. Declining a bit. Some shortness of breath. Slight cough. Some shortness of breath. No sputum. Appetite fair. We'll try to DC the Lang catheter. On IV Zosyn for pneumonia. Underwent bronchoscopy by Dr. Ramos earlier today. Found to have purulent material. 06/29/2023: Sitting up in a recliner. Breathing improving. Minimal cough. Eating well. Being changed over to oral antibiotic. Active Medications Albuterol/Ipratropium (Ipratropium-Albuterol 3 Ml Neb) 3 ml INHALATION RT-QID [place] Last Admin: 06/29/23 15:24 Dose: 3 ml Albuterol/Ipratropium (Ipratropium-Albuterol 3 Ml Neb) 3 ml INHALATION RT-Q4H PRN PRN Reason: shortness of breath Atorvastatin Calcium (Atorvastatin 40 Mg Tab) 40 mg PO HS [place] Last Admin: 06/28/23 20:41 Dose: 40 mg Budesonide (Budesonide 0.5 Mg/2 Ml Nebu) 0.5 mg INHALATION RT-BID [facility] Last Admin: 06/29/23 08:46 Dose: 0.5 mg Cyanocobalamin (Cyanocobalamin 500 Mcg Tab) 1,000 mcg PO DAILY [facility] Last Admin: 06/29/23 08:53 Dose: 1,000 mcg Sodium Chloride (Saline 0.9%) 1,000 mls @ 10 mls/hr IV .Q24H [facility] Last Admin: 06/29/23 07:47 Dose: Not Given Levofloxacin (Levofloxacin 500 Mg Tab) 500 mg PO Q24H [facility]; Protocol Stop: 07/06/23 11:01 Levothyroxine Sodium (Levothyroxine 112 Mcg Tab) 112 mcg PO DAILY@0630 [facility] Last Admin: 06/29/23 05:37 Dose: 112 mcg Melatonin (Melatonin 5 Mg Tablet) 10 mg PO [facility] Last Admin: 06/28/23 20:41 Dose: 10 mg Methylprednisolone Sodium Succinate (Methylprednisolone Sod Succi 40 Mg/Ml 1 Ml Vial) 40 mg IV Q8H [facility] Last Admin: 06/29/23 14:07 Dose: 40 mg Metoprolol Tartrate (Metoprolol Tartrate 12.5 Mg Tab) 12.5 mg PO BID [facility] Last Admin: 06/29/23 08:52 Dose: 12.5 mg Miscellaneous Information (Pneumonia Protocol Utilized 1 Each Misc) 1 each PO ONCE PRN PRN Reason: Per Protocol Montelukast Sodium (Montelukast 10 Mg Tab) 10 mg PO [facility] Last Admin: 06/28/23 20:41 Dose: 10 mg Pantoprazole Sodium (Pantoprazole 40 Mg Tablet) 40 mg PO AC-BID [facility] Last Admin: 06/29/23 05:37 Dose: 40 mg Potassium Chloride (Potassium Chloride Er 20 Meq Tab.Er) 20 meq PO DAILY [facility] Last Admin: 06/29/23 08:52 Dose: 20 meq Sertraline HCl (Sertraline 50 Mg Tab) 50 mg PO DAILY [facility] Last Admin: 06/29/23 08:53 Dose: 50 mg Tamsulosin HCl (Tamsulosin 0.4 Mg Cap.Er.24h) 0.4 mg PO PC-BRKFST [facility] Last Admin: 06/29/23 07:47 Dose: 0.4 mg Trazodone HCl (Trazodone Hcl 50 Mg Tab) 50 mg PO [facility] Last Admin: 06/28/23 20:41 Dose: 50 mg On examination: VITAL SIGNS: 98, 66, 16, 1 23 x 68, 97% room air GENERAL APPEARANCE: Reclining in bed awake slightly tired HEENT: Normal external appearance of nose and ear. Oral cavity normal EYES: Pupils equal. Conjunctiva normal. NECK: JVD not raised. Mass not palpable. RESPIRATORY: Respiratory effort increased. Right lung post recent coarse crackles CARDIOVASCULAR: First and second sounds normal. No edema. ABDOMEN: Soft. Liver and spleen not palpable. No tenderness. No mass palpable. PSYCHIATRY: Alert and oriented x3. Mood and affect normal. INVESTIGATIONS, reviewed in the clinical context: June 28: White count 17 hemoglobin 10.9 platelets 394 sodium 144 potassium 4.3 BUN 23.2 creatinine 1.3 procalcitonin 0.84 COVID 19 P/Cr: Not detected Chest x-ray film personally reviewed by me-right upper lobe infiltrate. Assessment and plan: -Right upper lobe pneumonia. Suspect gram-negative organism. Improving IV Zosyn. pending cultures from bronchoscopy lavage -Acute hypoxic respiratory failure secondary to pneumonia: Improving Now decreased to room air -Sepsis secondary to pneumonia -Acute COPD exacerbation DuoNeb. IV [id number] over to prednisone tomorrow. -Hemoptysis likely secondary to pneumonia. -Essential hypertension -Hypothyroid Synthroid 112 g -Vitamin B-12 deficiency Vitamin B12 supplement -Bilateral hearing loss -Chronic insomnia Trazodone -Hyperlipidemia Lipitor -Depression Zoloft -GERD Protonix -Full code Changed to oral Levaquin. By pulmonary. developer prover upholstering to oral prednisone in the morning. Increase activity. Plan for discharge tomorrow.
[2023-06-29] MEDS: traZODone HCL 50 MG TAB PO SCH (20:30)
[2023-06-29] MEDS: MONTELUKAST 10 MG TAB PO SCH (20:30)
[2023-06-29] MEDS: ATORVASTATIN 40 MG TAB PO SCH (20:30)
[2023-06-29] MEDS: MELATONIN 5 MG TABLET PO SCH (20:30)
[2023-06-30] MEDS: LEVOTHYROXINE 112 MCG TAB PO SCH (06:26)
[2023-06-30] MEDS: PANTOPRAZOLE 40 MG TABLET PO SCH (06:26)
[2023-06-30 07:28] VITALS: RESP 16
[2023-06-30] MEDS: SODIUM CHLORIDE 0.9% 1,000 ML IV SCH (07:57)
[2023-06-30] MEDS: TAMSULOSIN 0.4 MG CAP.ER.24H PO SCH (07:57)
[2023-06-30] MEDS: SERTRALINE 50 MG TAB PO SCH (08:00)
[2023-06-30] MEDS: POTASSIUM CHLORIDE ER 20 MEQ TAB.ER PO SCH (08:00)
[2023-06-30] MEDS: CYANOCOBALAMIN 500 MCG TAB PO SCH (08:00)
[2023-06-30] MEDS: METOPROLOL TARTRATE 12.5 MG TAB PO SCH (08:00)
[2023-06-30] MEDS: BUDESONIDE 0.5 MG/2 ML NEBU INHALATION SCH (08:27)
[2023-06-30] MEDS: IPRATROPIUM-ALBUTEROL 3 ML NEB INHALATION SCH ×2 (08:27→12:09)
[2023-06-30] MEDS ORDERED: predniSONE 20 MG TAB PO SCH (09:00)
[2023-06-30] MEDS ORDERED: LEVOFLOXACIN 500 MG TAB PO SCH (11:00)
--- NOTE | 2023-06-30 12:09 | P.PN ---
Subjective Progress Note Date: 06/30/23 This is a 73-year-old white male, no previous significant medical history, smoker, patient presented to [facility] today with 1 day history of coughing up blood. Patient also complaining of shortness of breath, no chest pain, denies any fever or chills, denies any nausea vomiting abdominal pain me dominic or hematemesis. CT angiogram of the chest showed extensive airspace disease involving the right midlung. Patient was transferred to [facility], and this consult was initiated. Chest x-ray done upon ER evaluation showed significant patchy airspace opacities within the right midlung and right upper lobe consistent with pneumonia. Patient was admitted and this consult was initiated. I saw the patient the ER, he received already vancomycin and Zosyn at [facility], and I will continue with Zosyn for now. Will initiate some diagnostic workup including sputum cultures, blood cultures, urine Legionella antigen, and based on the cultures further recommendations will follow regarding his antibiotics. Patient states that he was a week ago at [facility] with multiple constitutional symptoms and he was diagnosed with B12 deficiency but supposedly he did not have any pulmonary findings or symptoms at the time. The patient is seen today 06/28/2023 in follow-up on the regular medical floor. He is currently resting comfortably in bed. Awake and alert in no acute distress. No further hemoptysis this morning. He has a loose nonproductive cough. Chest x-ray showing persistent and slightly improved right upper lobe pneumonia. COVID-19 screen was negative. Plan is for bronchoscopy with BAL today. Currently on oxygen at 4 L/m per nasal cannula. Remains on DuoNeb inhalations, Pulmicort inhalations, Singulair, Solu-Medrol. Antibiotics in the form of Zosyn. The patient is seen today 06/29/2023 in follow-up on the regular medical floor. He is currently sitting up in bed. Awake and alert in no acute distress. No further hemoptysis. No worsening shortness of breath, cough or congestion. Chest x-ray showing improvement in the right hilar infiltrate. Blood culture revealed no growth. He is continued on DuoNeb inhalations, Pulmicort inhalat ions, IV Solu-Medrol. Antibiotics in the form of Zosyn and azithromycin. The patient is seen today 06/30/2023 and follow-up on the regular medical floor. He is sitting up at the bedside. Awake and alert in no acute distress. HEENT in good O2 saturations in the mid 90s on 1 L/m per nasal cannula. He is afebrile. Hemodynamically stable. Blood and urine cultures reveal no growth. He remains on DuoNeb inhalations, Pulmicort inhalations, Singulair. Antibiotics in the form of Levaquin. Objective - Vital Signs Vital signs: Vital Signs Temp 98.0 F 06/30/23 07:27 Pulse 80 06/30/23 08:41 Resp 16 06/30/23 07:27 BP 136/89 06/30/23 07:27 Pulse Ox 95 06/30/23 09:00 FiO2 Intake & Output 06/29/23 06/30/23 06/30/23 18:59 06:59 18:59 Other: # Voids 4 2 # Bowel Movements 1 - Exam GENERAL EXAM: Alert, 73-year-old male, on 1 L nasal cannula, comfortable in no apparent distress. HEAD: Normocephalic. EYES: Normal reaction of pupils, equal size. NOSE: Clear with pink turbinates. THROAT: No erythema or exudates. NECK: No masses, no JVD. CHEST: No chest wall deformity. LUNGS: Equal air entry with few scattered rhonchi of the right lung. CVS: S1 and S2 normal with no audible murmur, regular rhythm. ABDOMEN: No hepatosplenomegaly, normal bowel sounds, no guarding or rigidity. SPINE: No scoliosis or deformity SKIN: No rashes CENTRAL NERVOUS SYSTEM: No focal deficits, tone is normal in all 4 extremities. EXTREMITIES: There is no peripheral edema. No clubbing, no cyanosis. Peripheral pulses are intact. - Labs CBC & Chem 7: 06/28/23 06:53 06/28/23 06:53 Labs: Microbiology - Last 24 Hours (Table) 06/27/23 18:12 Blood Culture - Preliminary Blood 06/27/23 13:51 Gram Stain - Preliminary Sputum Assessment and Plan Assessment: Acute hypoxic respiratory failure secondary to extensive pneumonia, follow-up chest x-ray showing improvement. Pro-calcitonin 0.84 Acute healthcare acquired pneumonia, patient was in [facility] last week Hemoptysis secondary to pneumonia, bronchoscopy today ruled out endobronchial tumor History of underlying COPD, presently inactive Dyslipidemia History of B12 deficiency Plan: The patient was seen and evaluated Medications reviewed Cleared for discharge from the pulmonary standpoint Complete 7 days of Levaquin Continue his home pulmonary medications and oxygen Follow-up in our office in 1 week I have personally seen and examined the patient, performed the documentation and the assessment and plan as written. Number of minutes spent on the visit: 10.
[2023-06-30 13:55] VITALS: BP 116/66; PULSE 110; TEMP 97.5
--- NOTE | 2023-06-30 15:08 | P.DS ---
Providers Date of admission: 06/27/23 13:45 Expected date of discharge: 06/30/23 Attending physician: Michele Montesinos Consults: 06/27/23 13:55 Consult Physician Urgent Consulting Provider: Rogerio Ramos Consult Reason/Comments: dyspnea Do you want consulting provider notified?: Yes Primary care physician: [facility] Course: Patient is a 73-year-old male with history of COPD, hypertension, dyslipidemia, presenting from outside hospital with COPD exacerbation, pneumonia and sepsis, and hemoptysis. Patient was recently admitted at outside hospital 3 weeks ago with lower extremity numbness, and anemia. He was found to have severe B12 deficiency. He was in the hospital for 1 week. He has been home for a week and half. Last night he developed severe hemoptysis and cough. Denies any significant fevers or chills. Denies any chest pain, abdominal pain, nausea, vomiting, urinary or bowel complaints. He presented to the outside hospital, he was having urinary retention, Lang was placed. In the ED, temperature was 99.6, blood pressure 126/64, saturating at 95% on 4 L, pulse 91, respiratory rate 20. Labs at Outside facility showed WBC count of 25.93, hemoglobin 12.1, macrocytic, creatinine 1, proBNP 975, pro calcitonin elevated, negative troponin, CTA chest showed no PE, severe LAD calcification, COPD with moderate emphysema, evidence of pneumonia greater on the right compared to left. Patient repeated for sepsis secondary to pneumonia and hemoptysis, and hypoxic respiratory failure, pulmonology consulted. 06/28/2023: Patient follows with Dr. Ambrosio. I took over the care today. Declining a bit. Some shortness of breath. Slight cough. Some shortness of breath. No sputum. Appetite fair. We'll try to DC the Lang catheter. On IV Zosyn for pneumonia. Underwent bronchoscopy by Dr. Ramos earlier today. Found to have purulent material. 06/29/2023: Sitting up in a recliner. Breathing improving. Minimal cough. Eating well. Being changed over to oral antibiotic. 06/30/2023: Doing better. Eating well. Discussed with patient. Pulmonary cleared.. Discharged on Levaquin. Discussed with patient. 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 Albert Busch Discussion and discharge planning more than 35 minutes On examination: VITAL SIGNS: 98, 79, 16, 1 36 x 89, 97% on 3 L GENERAL APPEARANCE: Sitting up, feeling comfortable HEENT: Normal external appearance of nose and ear. Oral cavity normal EYES: Pupils equal. Conjunctiva normal. NECK: JVD not raised. Mass not palpable. RESPIRATORY: Respiratory effort increased. Crease breath sounds CARDIOVASCULAR: First and second sounds normal. No edema. ABDOMEN: Soft. Liver and spleen not palpable. No tenderness. No mass palpable. PSYCHIATRY: Alert and oriented x3. Mood and affect normal. INVESTIGATIONS, reviewed in the clinical context: June 28: White count 17 hemoglobin 10.9 platelets 394 sodium 144 potassium 4.3 BUN 23.2 creatinine 1.3 procalcitonin 0.84 COVID 19 P/Cr: Not detected Chest x-ray film personally reviewed by me-right upper lobe infiltrate. Assessment and plan: -Right upper lobe pneumonia. Suspect gram-negative organism. Improving IV Zosyn. pending cultures from bronchoscopy lavage Discharged home on Levaquin per pulmonary -Acute hypoxic respiratory failure secondary to pneumonia: Improving -Sepsis secondary to pneumonia -Acute COPD exacerbation DuoNeb. IV Uhjz-[id number]-[id number] over to prednisone tomorrow. Discharge on prednisone taper -Hemoptysis likely secondary to pneumonia.: Improved -Essential hypertension -Hypothyroid Synthroid 112 g -Vitamin B-12 deficiency Vitamin B12 supplement -Bilateral hearing loss -Chronic insomnia Trazodone -Hyperlipidemia Lipitor -Depression Zoloft -GERD Protonix -Full code Disposition: Home Plan - Discharge Summary Discharge Rx Participant: No New Discharge Prescriptions: New Levofloxacin [Levaquin] 500 mg PO Q24H #5 tab Tamsulosin [Flomax] 0.4 mg PO PC-BRKFST #30 cap predniSONE 10 mg PO DAILY #30 tab Continue traZODone HCL [Desyrel] 50 mg PO HS Ipratropium-Albuterol Nebulize [Duoneb 0.5 mg-3 mg/3 ml Soln] 3 ml INHALATION RT-QID PRN PRN Reason: Shortness Of Breath Atorvastatin [Lipitor] 40 mg PO HS Montelukast [Singulair] 10 mg PO HS Levothyroxine Sodium [Synthroid] 112 mcg PO DAILY Pantoprazole [Protonix] 40 mg PO BID Sertraline [Zoloft] 50 mg PO DAILY Melatonin 10 mg PO HS Potassium Chloride ER [K-Dur 20] 20 meq PO DAILY Budesonide [Pulmicort] 0.5 mg INHALATION RT-BID Cyanocobalamin [Vitamin B-12] 1,000 mcg PO DAILY Discontinued Furosemide [Lasix] 20 mg PO DAILY predniSONE [Deltasone] See Taper PO DIRECTED No Action Metoprolol Tartrate [Lopressor] 25 mg PO DAILY Discharge Medication List Atorvastatin [Lipitor] 40 mg PO HS 06/27/23 [History] Budesonide [Pulmicort] 0.5 mg INHALATION RT-BID 06/27/23 [History] Cyanocobalamin [Vitamin B-12] 1,000 mcg PO DAILY 06/27/23 [History] Ipratropium-Albuterol Nebulize [Duoneb 0.5 mg-3 mg/3 ml Soln] 3 ml INHALATION RT-QID PRN 06/27/23 [History] Levothyroxine Sodium [Synthroid] 112 mcg PO DAILY 06/27/23 [History] Melatonin 10 mg PO HS 06/27/23 [History] Metoprolol Tartrate [Lopressor] 25 mg PO DAILY 06/27/23 [History] Montelukast [Singulair] 10 mg PO HS 06/27/23 [History] Pantoprazole [Protonix] 40 mg PO BID 06/27/23 [History] Potassium Chloride ER [K-Dur 20] 20 meq PO DAILY 06/27/23 [History] Sertraline [Zoloft] 50 mg PO DAILY 06/27/23 [History] traZODone HCL [Desyrel] 50 mg PO HS 06/27/23 [History] Levofloxacin [Levaquin] 500 mg PO Q24H #5 tab 06/30/23 [Rx] Tamsulosin [Flomax] 0.4 mg PO PC-BRKFST #30 cap 06/30/23 [Rx] predniSONE 10 mg PO DAILY #30 tab 06/30/23 [Rx] Follow up Appointment(s)/Referral(s): [facility], [NON-STAFF] - 1-2 Days ([facility] will call you to schedule your in home physical and occupational therapy visits. ) [facility] [REFERRING] - 1-2 days (Office closed at time of discharge. Please call for follow-up appointment.) Kuldeep Busch MD [STAFF PHYSICIAN] - 1 Week (Office closed at time of discharge. Please call for follow-up appointment.) Patient Instructions/Handouts: COPD (Chronic Obstructive Pulmonary Disease) (DC), Sepsis (DC), Community Acquired Pneumonia (DC) Discharge Disposition: HOME SELF-CARE
== END 2023-06-30 14:46 | disposition home or self-care (01) | DRG 871 ==
LOC: EC 13:25 → 4SSUR 13:45
PROVIDERS: ADMIT Hospitalist; ATTEND Hospitalist
PROC: 0B9F8ZX Drainage of Right Lower Lung Lobe, Via Natural or Artificial Opening Endoscopic, Diagnostic (ICD-10-PCS; principal; 2023-06-28 08:25)
DX: A41.50 Gram-negative sepsis, unspecified (principal); J15.6 Pneumonia due to other Gram-negative bacteria; J18.9 Pneumonia, unspecified organism; J96.01 Acute respiratory failure with hypoxia; J44.0 Chronic obstructive pulmonary disease with (acute) lower respiratory infection; J44.1 Chronic obstructive pulmonary disease with (acute) exacerbation; R04.2 Hemoptysis; E03.9 Hypothyroidism, unspecified; E78.5 Hyperlipidemia, unspecified; F32.A Depression, unspecified; F51.04 Psychophysiologic insomnia; H91.93 Unspecified hearing loss, bilateral; I10 Essential (primary) hypertension; K21.9 Gastro-esophageal reflux disease without esophagitis; Y95 Nosocomial condition; Z20.822 Contact with and (suspected) exposure to COVID-19; Z79.51 Long term (current) use of inhaled steroids; Z79.890 Hormone replacement therapy; Z79.899 Other long term (current) drug therapy; Z28.310 Unvaccinated for COVID-19; Z28.21 Immunization not carried out because of patient refusal
CPT/HCPCS: 31624; 36415; 71045; 71046; 80053; 83605; 84145; 85025; 87040; 87070; 87102; 87116; 87205; 87206; 87449; 87496; 87498; 87502; 87529; 87634; 87635; 87798; 88108; 88305; 94640; 94760; 96374; 99285